=== PATIENT | female | born 1985 | race Hispanic/Latino ===

== ENCOUNTER 2025-03-04 17:48 | Emergency (ER) | payer SELFPAY ==
[~2025-03-04] VITALS: Ht 167.6 cm; Wt 84.4 kg
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
[2025-03-04] MEDS: ORPHENADRINE 60MG/2ML IM ONE (19:34)
[2025-03-04] MEDS: CYCLOBENZAPRINE HCL 10 MG TABLET PO ONE (19:47)
--- NOTE | 2025-03-04 20:47 | HMCIMG ---
KNEE 3VWS LT HISTORY: Pain COMPARISON: None TECHNIQUE: 3 images of left knee were obtained. FINDINGS: There is no acute displaced fracture or dislocation. Degenerative changes are seen. IMPRESSION: 1. Findings as described above.
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
--- NOTE | 2025-03-04 20:52 | HMCIMG ---
SHOULDER COMP 2+VWS LT HISTORY: Pain COMPARISON: None TECHNIQUE: 2 images of the left shoulder were obtained. FINDINGS: There is no acute displaced fracture or dislocation. Mild degenerative changes are seen. IMPRESSION: 1. Findings as described above.
--- NOTE | 2025-03-04 20:53 | HMCIMG ---
CERV SPINE 2-3VWS HISTORY: Pain COMPARISON: None FINDINGS: 3 images of cervical spine were obtained. There is straightening of normal lordotic curvature which may be related to muscle spasm or positioning. No loss of vertebral height is seen. No fracture or dislocation is seen. Minimal degenerative changes are seen. IMPRESSION: 1. No fracture is seen.
[2025-03-04] MEDS ORDERED: CYCL10TA16 PO (21:05)
[2025-03-04] MEDS: ketOROlac 60 MG VIAL (30MG/ML) IM ONE (21:24)
[2025-03-04 21:36] VITALS: BP 121/87; PULSE 79; RESP 16; TEMP 98.4; O2SAT 98
== END 2025-03-04 20:40 | disposition home or self-care (01) ==
LOC: EDH 17:48
DX: M54.2 Cervicalgia (principal); M25.512 Pain in left shoulder; M25.552 Pain in left hip; E11.9 Type 2 diabetes mellitus without complications; I10 Essential (primary) hypertension
CPT/HCPCS: 99284; 72040; 73502; 73562; 73030; 96372; J1885; 99283; J2360